=== PATIENT | male | born 1955 | race Caucasian/White ===

== ENCOUNTER 2020-11-08 08:16 | Outpatient (REF) | payer MEDICARE, BC, SELFPAY ==
--- NOTE | ~2020-11-08 | XR_ITS ---
EXAMINATION: XR KNEE, RIGHT XR KNEE AP STANDING CLINICAL INFORMATION: Pain. COMPARISON: None TECHNIQUE: Lateral and axial views of the right knee were obtained. AP bilateral standing view of the knees was obtained. FINDINGS: Right knee bones and soft tissues are normal. No fracture or dislocation is seen. There is a small right knee joint effusion. Alignment is anatomic. Right knee joint spaces are well maintained. No abnormal soft tissue calcification. On the AP view, the lateral an medial joint space compartments of the left knee are well-maintained. XR/XR knee standing BI IMPRESSION: 1. A small right knee joint effusion is seen. 2. No unusual degenerative change is seen of the bilateral knees.
--- NOTE | ~2020-11-08 | XR_ITS ---
EXAMINATION: XR KNEE, RIGHT XR KNEE AP STANDING CLINICAL INFORMATION: Pain. COMPARISON: None TECHNIQUE: Lateral and axial views of the right knee were obtained. AP bilateral standing view of the knees was obtained. FINDINGS: Right knee bones and soft tissues are normal. No fracture or dislocation is seen. There is a small right knee joint effusion. Alignment is anatomic. Right knee joint spaces are well maintained. No abnormal soft tissue calcification. On the AP view, the lateral an medial joint space compartments of the left knee are well-maintained. XR/XR knee RT 2V IMPRESSION: 1. A small right knee joint effusion is seen. 2. No unusual degenerative change is seen of the bilateral knees.
== END 2020-11-08 08:17 | disposition home or self-care (01) ==
LOC: HO.HOSX 08:16
PROVIDERS: Visit Provider Orthopaedic Surgery
DX: M25.561 Pain in right knee (principal)
CPT/HCPCS: 73560; 73565; 99212

== ENCOUNTER 2021-01-15 16:34 | Outpatient (REF) | payer MEDICARE, BC, SELFPAY ==
--- NOTE | ~2021-01-15 | MR_ITS ---
EXAMINATION: MR KNEE WITHOUT CONTRAST, RIGHT CLINICAL INFORMATION: Right knee pain with bending. Clicking. Internal derangement. COMPARISON: Right knee radiographs dated 11/08/2020. TECHNIQUE: MRI of the knee without contrast was performed using routine sequences on a high-field scanner. FINDINGS: MENISCI: Medial Meniscus: Mild intrasubstance degenerative signal within the meniscal body and medial aspect of the posterior horn which may contact the tibial articular surface. Lateral Meniscus: Oblique inner margin tearing of the posterior meniscal body extending into the posterior horn. Complex fraying/tearing of the posterior horn and root. LIGAMENTS: Cruciate: Intact. Collateral: Intact. EXTENSOR MECHANISM: Intact. ARTICULAR CARTILAGE/BONE: Patellofemoral Compartment: Mild patellar median ridge articular cartilage surface irregularity. Central and medial trochlear articular cartilage signal heterogeneity and surface irregularity. Tiny marginal osteophytes. Medial Compartment: Near full-thickness articular cartilage defect at the posterior weightbearing medial femoral condyle measuring 1.3 x 0.8 cm (AP x ML). Lateral Compartment: Weightbearing lateral tibial plateau articular cartilage signal heterogeneity and surface irregularity. Tiny marginal osteophytes. JOINT FLUID AND BURSAE: [id number] joint effusion. Superomedial loose body measuring 0.4 cm (axial image 10/07). MR/MR knee RT wo con IMPRESSION: 1. Oblique inner margin tearing of the lateral meniscus posterior body extending into the posterior horn with complex tearing of the posterior root. 2. Intrasubstance abnormal signal within the meniscal body and posterior horn with possible contact of the tibial articular surface. 3. Mild tricompartmental osteoarthritis. Near full-thickness focal defect at the weightbearing medial femoral condyle measuring 1.3 x 0.8 cm. 4. Small to moderate joint effusion. Superomedial loose body measuring 0.4 cm.
== END 2021-01-15 16:35 | disposition home or self-care (01) ==
LOC: HO.MRI 16:34
PROVIDERS: Visit Provider Orthopaedic Surgery
DX: M23.91 Unspecified internal derangement of right knee (principal)
CPT/HCPCS: 73721

== ENCOUNTER → 2021-02-04 13:44 | Outpatient (BNVA) | payer MEDICARE, BC, SELFPAY | PROVIDERS: Visit Provider Orthopaedic Surgery | DX: S83.281A Other tear of lateral meniscus, current injury, right knee, initial encounter (principal) | CPT/HCPCS: 99212 ==

== ENCOUNTER 2021-02-27 10:23 | Day surgery (SDC) | payer MEDICARE, BC, SELFPAY ==
[2021-02-14 10:58] VITALS: BMI 36.2
--- NOTE | 2021-02-19 10:30 | HO.ANESPROP2 ---
Documented by User: Renetta Cagle NP 02/19/21 10:30 HPI - Anesthesia Eval Consult details Narrative: 66yo M for Right Knee Arthroscopy PMFSH Active Problems Active Problems: All Active Problems (Updated 02/14/21 @ 10:56 by Jada Hernandez RN) Lateral meniscus tear (Acute) Past Medical History Medical History Arthritis COVID-19 vaccine series completed High blood pressure Seasonal allergies Surgical History Surgical History H/O colonoscopy Social History Social History Are you a primary day care center director to a significant other at home: No Do you presently have visiting nurse or other home services: No Patient Tobacco Use Status: Never used Tobacco Use of substances other than those prescribed or required for medical reasons: No Have you been hit, kicked, punched, or otherwise hurt by someone within the past year? If so, by whom?: No Are you DNR?: No Advance Directives: Yes Advance Directives Information Provided: Yes (informational brochure mailed w/pre-op instructions) Advance Directives on File: No Recently lost weight without trying: No Eating poorly because of decreased appetite: No Nutrition Risks: No Nutritional Risk Poor oral hygiene: No Meds Allergies Allergy/AdvReac Type Severity Reaction Status Date / Time Penicillins Allergy Severe Anaphylaxis Verified 02/14/21 10:58 (childhood) Seasonal Allergies Allergy Intermediate hayfever Verified 02/14/21 10:58 symptoms (taking montelukast daily) Home Medications Medication Instructions Recorded Confirmed Last Taken Type hydralazine 50 mg tablet 50 mg PO BID 11/08/20 02/14/21 02/27/21 06:00 History losartan 100 1 tab PO QAM 11/08/20 02/14/21 Unknown History mg-hydrochlorothiazide 25 mg tablet montelukast 10 mg tablet 10 mg PO QAM 11/08/20 02/14/21 Unknown History Exam Exam Date and Time: February 19, 2021 1030 Height,Weight and Vital Signs: Height 6 ft 4 in Weight 135.171 kg Assessment and Plan Assessment Anesthesia Assessment: Chart Reviewed Documented by User: Deepthi Oswald MD 02/27/21 12:59 PMFSH Active Problems Active Problems: All Active Problems (Updated 02/14/21 @ 10:56 by Jada Hernandez RN) Lateral meniscus tear (Acute) Surgery postponed from last week secondary to feeling fluish after getting flu and covid booster vaccines. Tested negative for covid. Feeling much better today Past Medical History Medical History Arthritis COVID-19 vaccine series completed High blood pressure Seasonal allergies Family History Family history of problems with anesthesia: No Surgical History Surgical History H/O colonoscopy History of Problems with Anesthesia: No Social History Social History Are you a primary day care center director to a significant other at home: No Do you presently have visiting nurse or other home services: No Patient Tobacco Use Status: Never used Tobacco Use of substances other than those prescribed or required for medical reasons: No Have you been hit, kicked, punched, or otherwise hurt by someone within the past year? If so, by whom?: No Are you DNR?: No Advance Directives: Yes Advance Directives Information Provided: Yes (informational brochure mailed w/pre-op instructions) Advance Directives on File: No Recently lost weight without trying: No Eating poorly because of decreased appetite: No Nutrition Risks: No Nutritional Risk Poor oral hygiene: No Meds Allergies Allergy/AdvReac Type Severity Reaction Status Date / Time Penicillins Allergy Severe Anaphylaxis Verified 02/14/21 10:58 (childhood) Seasonal Allergies Allergy Intermediate hayfever Verified 02/14/21 10:58 symptoms (taking montelukast daily) Home Medications Medication Instructions Recorded Confirmed Last Taken Type hydralazine 50 mg tablet 50 mg PO BID 11/08/20 02/14/21 02/27/21 06:00 History losartan 100 1 tab PO QAM 06/24/21 09/30/21 Unknown History mg-hydrochlorothiazide 25 mg tablet montelukast 10 mg tablet 10 mg PO QAM 11/08/20 02/14/21 Unknown History Exam Height,Weight and Vital Signs: Height 6 ft 4 in Weight 135.171 kg Vital Signs Temp Pulse Resp BP Pulse Ox 02/27/21 10:58 161/85 H 02/27/21 10:48 97.6 F 79 16 174/107 H 96 Airway Mallampati Class: II TM Dist: >3cm Neck ROM: Full Heart: RRR Lungs: CTAB Assessment and Plan Assessment Anesthesia Assessment: Anesthesia Plan Discussed Final Anesthetic Review Family History of Problems with Anesthesia: No History of Problems with Anesthesia: No NPO: Yes ASA Class: II Final Preanesthetic Review: No Changes in Pt Med Stat, Meds/Allgs Chart Reviewed, Consent Obtained/Reviewed and Anes Risks/Benef Reviewed Patient Risk: Intermediate Procedure Risk: Low Assessment/Block/Sedation in SS: Assess/Block/Sedation-SS Anesthetic Plan Anesthetic Plan: GA Disposition: Standard PACU
[2021-02-27] VITALS (7 sets, daily range): BP systolic 114–174; BP diastolic 54–107; PULSE 65–79; RESP 16; TEMP 36.1–36.4; O2SAT 96–99
[2021-02-27] MEDS: Lactated Ringers 1,000 ML 100 ML IVCONT (11:09)
--- NOTE | 2021-02-27 11:17 | MHC.SHP ---
Pre-Procedural Eval Section A Date of Service: 02/27/21 The patient is an INPATIENT: No Changes since office visit: Yes Patient answered all questions; No Cold of Flu in the past 2 weeks, No New Medical Problems and No Changes in Medication The History & Physical has been completed within 30 days and I have reviewed it.: Yes Section B Chief Complaint: right knee pain Allergies: Allergies Allergy/AdvReac Type Severity Reaction Status Date / Time Penicillins Allergy Severe Anaphylaxis Verified 02/14/21 10:58 (childhood) Seasonal Allergies Allergy Intermediate hayfever Verified 02/14/21 10:58 symptoms (taking montelukast daily) Plan I have reviewed the history and physical and performed a pertinent physical examination on my patient. No changes have occurred unless specified.
[2021-02-27] MEDS: oxyCODONE HCl Immed Release 5 MG TABLET PO (14:45)
[2021-02-27] MEDS: Acetaminophen 325 MG TABLET 650 MG PO (14:45)
--- NOTE | 2021-03-08 14:53 | P.BOP_ITS ---
Brief Operative Note Date of Service: 02/27/21 Pre-op diagnosis: Right knee lateral meniscus tear Post-op diagnosis: other (1) right knee lateral meniscus tear 2) right knee osteoarthritis) Procedure: Partial lateral meniscectomy and chondroplasty Surgeon: Cooper Davies MD Anesthesia: GETA and local Was an Refrigeration Brazer/Solderer used for this Procedure?: No Estimated blood loss (mL): 5 IV fluids (mL): 500 Pathology: none sent Condition: stable Disposition: PACU
--- NOTE | 2021-03-08 14:57 | W.PM.OPN ---
Operative Note Operative Note Date of Service: 02/27/21 Narrative: Pre-op diagnosis: Right knee lateral meniscus tear Post-op diagnosis: other (1) right knee lateral meniscus tear 2) right knee osteoarthritis) Procedure: Partial lateral meniscectomy and chondroplasty Surgeon: Cooper Davies MD Anesthesia: GETA and local Was an Coordinator [employer] used for this Procedure?: No Estimated blood loss (mL): 5 IV fluids (mL): 500 Pathology: none sent Condition: stable Disposition: PACU Procedure in detail: Patient was brought to the operating room placed supine on the arthroscopic table and prepped and draped in standard sterile fashion. A time-out was called to identify proper site proper procedure proper surgeon and IV antibiotics per weight were administered. I began by exsanguinating the limb and insufflating tourniquet to 300 mm Hg. Then made a standard anterolateral stab incision. The knee was insufflated with water and 30 degree arthroscope was placed. There was grade 1 fibrillations of the patella but overall suprapatellar pouch was clean and the gutters were clean. I descended into the medial compartment where I made my medial portal under direct visualization. There was a grade 3 with small areas of g 4 changes in the femroal medial condyle in the wb portion extending anteriorly. This was debrided with a shaver. The meniscus was pristine and the root was intact. From here I examined the notch which was largely intact but there were some changes in the lateral aspect of the ACL and the junction with see lateral meniscus. There was a partially flipped bucket-handle meniscus tear with partial involvement the ACL. Overall the ACL involvement was minimal but this was a large flap of the meniscus that had flipped into the notch. I used a probe to free this up and then debrided it with combination of shaver and cautery until it was down to stable edges. The lateral meniscus was intact and the lateral compartment cartilage was unharmed. I took my final pictures and then removed all instrumentation and closed the portals with skin glue. 25 mL of 2% Marcaine with epinephrine was injected into the joint and the surrounding soft tissues. Patient was then placed in sterile dressing extubated brought recovery room stable condition. There were no known complications.
== END 2021-02-27 16:10 | disposition home or self-care (01) ==
PROVIDERS: PCP Internal Medicine; Visit Provider Orthopaedic Surgery
PROC: (CPT 29870; principal; 2021-02-27 12:30)
DX: S83.281A Other tear of lateral meniscus, current injury, right knee, initial encounter (principal); M25.461 Effusion, right knee; M17.11 Unilateral primary osteoarthritis, right knee; X58.XXXA Exposure to other specified factors, initial encounter; Y93.9 Activity, unspecified; Y92.9 Unspecified place or not applicable; Y99.8 Other external cause status; I10 Essential (primary) hypertension; J30.2 Other seasonal allergic rhinitis; Z79.899 Other long term (current) drug therapy; Z88.0 Allergy status to penicillin
CPT/HCPCS: 29881; J0171; J1100; J2250; J2405; J3010

== ENCOUNTER → 2021-03-11 14:16 | Outpatient (BNVA) | payer MEDICARE, BC, SELFPAY | PROVIDERS: Visit Provider Physician Assistant | DX: S83.289D Other tear of lateral meniscus, current injury, unspecified knee, subsequent encounter (principal) | CPT/HCPCS: 99212 ==

== ENCOUNTER → 2021-05-29 08:55 | Outpatient (BNVA) | payer MEDICARE, BC, SELFPAY | PROVIDERS: PCP Internal Medicine; Visit Provider Internal Medicine Cardiovascular Disease | DX: I10 Essential (primary) hypertension (principal); G47.10 Hypersomnia, unspecified | CPT/HCPCS: 93005; 99202 ==

== ENCOUNTER → 2021-06-04 14:57 | Outpatient (REF) | payer MEDICARE, BC, SELFPAY | LOC: HO.SL 14:57 | PROVIDERS: Visit Provider Internal Medicine Cardiovascular Disease | DX: G47.10 Hypersomnia, unspecified (principal); I10 Essential (primary) hypertension; G47.33 Obstructive sleep apnea (adult) (pediatric) | CPT/HCPCS: 95806 ==

== ENCOUNTER → 2021-06-13 07:45 | Outpatient (REF) | payer MEDICARE, BC, SELFPAY ==
--- NOTE | ~2021-06-13 | US_ITS ---
EXAMINATION: ULTRASOUND RENAL WITH DOPPLER CLINICAL INFORMATION: Essential primary hypertension COMPARISON: None. TECHNIQUE: Real-time grayscale, color Doppler, and duplex Doppler evaluation of the kidneys and renal vasculature was performed. FINDINGS: RENAL MEASUREMENTS: Right: 14.3 x 5.3 x 6.6 cm (Sag x AP x TV) Left: 14.0 x 6.7 x 6.5 cm (Sag x AP x TV) The renal parenchyma appears normal. No hydronephrosis or nephrolithiasis. DOPPLER INTERROGATION: Aorta: 98 cm/sec Right Main Renal Artery: Proximal: 99 cm/sec Mid: 75 cm/sec Distal: 102 cm/sec Upper left Main Renal Artery: Proximal: 89 cm/sec Mid: 125 cm/sec Distal: 144 cm/sec Lower left Main Renal Artery: Proximal: 219 cm/sec Mid: 223 cm/sec Distal: 221 cm/sec Renal-Aortic Ratio (RAR): Right: 1.0 Upper Left: 1.5 Lower Left: 2.2 US/US renal doppler IMPRESSION: -Single main right renal artery demonstrates normal velocities without evidence of hemodynamically significant stenosis. 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 The uppermost left renal artery demonstrates no evidence of hemodynamically significant stenosis, however, velocities are elevated throughout the majority of the left lower renal artery suggesting possible stenosis. CTA abdomen recommended for further evaluation.
--- NOTE | 2021-06-13 07:48 | CA_ITS ---
Transthoracic Echocardiogram Patient (Last, First, Middle): Elvis Cutler, Gender: Male Date of : 1955 Age: 66 Procedure Date: 06/13/2021 Procedure Type: Transthoracic Echocardiogram Location: OP Height: 193.04 cm Weight: 136.08 kg BSA: 2.63 m2 Heart Rate: bpm BP: 140 / 80 mmHg Food Tray Assembler: TSERING Referring MD: Dm Chacon MD District Plant Engineer: Dm Chacon MD Symptoms: I10 - Essential (primary) hypertension Study Quality: Technically Difficult/contrast ECG Rhythm: Sinus Conclusions: - 1. Normal LV systolic function with normal filling pattern 2. Mildly dilated left atrium 3. Trivial aortic regurgitation 4. Normal RV systolic pressure 5. No gross pericardial effusion Findings Procedure Information Contrast agent, definity, is being given per protocol without apparent complications. Left Ventricle Normal left ventricular size and systolic function. There is mildly increased left ventricular wall thickness. The visually estimated ejection fraction is between 60-65%. Spectral Doppler is indicative of a normal filling pattern. Right Ventricle Normal right ventricular cavity size and systolic function. Atria The left atrium is mildly dilated. Interatrial shunt cannot be excluded. The right atrium was not well visualized. Aortic Valve The aortic valve structure and function is likely normal. There is no aortic valve stenosis. There is trace (trivial) aortic valve regurgitation. Mitral Valve Likely normal mitral valve structure and function. There is trace mitral valve regurgitation. There is no mitral valve stenosis. Pulmonic Valve The pulmonic valve was not well visualized. Tricuspid Valve There is trace tricuspid valve regurgitation. The right ventricular systolic pressure is normal. The right ventricular systolic pressure is 16 mmHg. There is no evidence of pulmonary hypertension. Great Vessels All visible segments of the aorta are normal in size. The pulmonary artery was not well visualized. Venous The inferior vena cava is normal in size and collapses greater than 50% with inspiration. Pericardium/Pleural There is no evidence of pericardial effusion. Prior Study Comparison No prior study available for comparison. Measurements 2D Linear Measurements IVSd: 1.22 0.6-0.9/0.6-1.0 cm LVIDd: 3.99 3.9-5.3/4.2-5.9 cm LVIDd Index: 1.52 2.4-3.2/2.2-3.1 cm/m2 LVIDs: 2.62 2.0-3.6 cm LVPWd: 1.18 0.7-1.1 cm Ao Root: 3.90 2.1-3.5 cm LA Diam: 3.90 2.7-3.8/3.0-4.0 cm LAIDs Index: 1.48 1.5-2.3 cm/m2 LV Mass: 205.29 67-162/88-224 g LV Mass Index: 78.06 43-95/49-115 g/m2 LVOT Diam: 2.30 3.0+(-)1.3 cm 2D Systolic Function EF 4C: 64.30 >55% EF 2C: 61.30 >55% EF BiP: 61.30 >55% Mitral Valve MV Pk E: 0.81 MV PK A: 0.58 MV Decel Time: 250.00 E/A: 1.40 E'Lateral: 11.00 E'Medial: 7.07 E/E' Med: 11.50 E/E' Lat: 7.40 PHT: 73.00 MVA PHT: 3.01 Decel Stephenson: 3.24 Aortic Valve AoV Pk Mark: 1.20 AoV Mn Mark: 0.94 AoV VTI: 0.27 AoV Pk Grad: 6.00 Aov Mn Grad: 4.00 ANGELA Cont.VTI: 3.42 LVOT LVOT Pk Mark: 1.10 LVOT Mn Mark: 0.70 LVOT VTI: 0.22 LVOT Pk Grad: 5.00 LVOT Mn Grad: 2.00 LVOT Diam: 2.30 LVOT Area: 4.15 Diastolic Function MV Pk E: 0.81 MV Pk A: 0.58 E/A: 1.40 E'Medial: 7.07 E/E' Med: 11.50 E' Laterial: 11.00 E/E' Lat: 7.40 Right Ventricle TAPSE (mm): 25.40 TVS' Mark: 16.60 Tricuspid Valve TR Pk Mark: 1.79 TR Pk Grad: 13.00 RA Press: 3.00 RVSP: 16.00 Great Vessels Aorta Ao Root-2D: 3.90 2.0-3.7 cm Ao Asc: 3.30 2.1-3.4 cm Ao Arch: 3.20 Updated in Other Vendor System with Status of Final Dm Chacon MD electronically signed on 06/14/2021 4:32:42 PM with status of Final
== END ==
LOC: HO.CARD 07:45
PROVIDERS: Visit Provider Internal Medicine Cardiovascular Disease
DX: I10 Essential (primary) hypertension (principal)
CPT/HCPCS: 93306; 93975; Q9957

== ENCOUNTER → 2021-06-17 09:10 | Outpatient (BNVA) | payer MEDICARE, BC, SELFPAY | PROVIDERS: Visit Provider Nurse Practitioner Family | DX: G47.33 Obstructive sleep apnea (adult) (pediatric) (principal); I10 Essential (primary) hypertension | CPT/HCPCS: 99202 ==

== ENCOUNTER → 2021-07-10 09:11 | Outpatient (BNVA) | payer MEDICARE, BC, SELFPAY | PROVIDERS: Visit Provider Internal Medicine Cardiovascular Disease | DX: I11.9 Hypertensive heart disease without heart failure (principal) | CPT/HCPCS: 99212 ==

== ENCOUNTER → 2022-06-30 09:00 | Outpatient (BNVA) | payer MEDICARE, BC, SELFPAY | PROVIDERS: PCP Internal Medicine; Visit Provider Internal Medicine Cardiovascular Disease | DX: I11.9 Hypertensive heart disease without heart failure (principal) | CPT/HCPCS: 93005; 99212 ==

== ENCOUNTER → 2023-06-11 07:51 | Outpatient (REF) | payer MEDICARE, BC, SELFPAY ==
--- NOTE | 2023-06-11 07:54 | CA_ITS ---
Transthoracic Echocardiogram Patient (Last, First, Middle): Elvis Cutler, Gender: Male Date of : 1955 Age: 68 Procedure Date: 06/11/2023 Procedure Type: Transthoracic Echocardiogram Location: OP Height: 193.04 cm Weight: 136.08 kg BSA: 2.63 m2 Heart Rate: 73 bpm BP: 150 / 85 mmHg Health Information Systems Technician: JOEL Referring MD: Dm Chacon MD Symptoms: I11.9 - Hypertensive heart disease without heart failure Study Quality: Fair/w Contrast ECG Rhythm: Sinus Conclusions: - 1. Normal LV ejection fraction 55-60% with mild LVH 2. Mildly dilated left atrium 3. Normal cardiac valvular Doppler 4. Mildly dilated ascending aorta 3.7 cm 5. No gross pericardial effusion Findings Procedure Information Contrast agent, definity, is being given per protocol without apparent complications. Left Ventricle Normal left ventricular size and systolic function. There is mildly increased left ventricular wall thickness. The visually estimated ejection fraction is between 55-60%. Spectral Doppler is indicative of a normal filling pattern. Right Ventricle Normal right ventricular cavity size and systolic function. Atria The left atrium is mildly dilated. Interatrial shunt cannot be excluded. The right atrium is normal in size. Aortic Valve The aortic valve structure and function is likely normal. There is no aortic valve stenosis. There is no aortic valve regurgitation. Mitral Valve There is mild anterior mitral leaflet thickening. There is trace mitral valve regurgitation. There is no mitral valve stenosis. Pulmonic Valve The pulmonic valve is likely normal. Tricuspid Valve Normal tricuspid valve structure. Tricuspid regurgitation envelope is inadequate for calculation of right ventricular systolic pressure. Normal right atrial pressure. Great Vessels The pulmonary artery was not well visualized. There is mild dilatation of the ascending aorta measuring 3.70 cm. Venous The inferior vena cava is normal in size and collapses greater than 50% with inspiration. Pericardium/Pleural There is no evidence of pericardial effusion. Prior Study Comparison No significant change compared to prior study dated: 06/13/2021. Measurements 2D Linear Measurements IVSd: 1.37 0.6-0.9/0.6-1.0 cm LVIDd: 4.24 3.9-5.3/4.2-5.9 cm LVIDd Index: 1.61 2.4-3.2/2.2-3.1 cm/m2 LVIDs: 2.85 2.0-3.6 cm LVPWd: 1.32 0.7-1.1 cm LA Diam: 4.50 2.7-3.8/3.0-4.0 cm LAIDs Index: 1.71 1.5-2.3 cm/m2 LV Mass: 266.85 67-162/88-224 g LV Mass Index: 101.46 43-95/49-115 g/m2 LVOT Diam: 2.20 3.0+(-)1.3 cm 2D Systolic Function EF 4C: 60.40 >55% EF 2C: 62.70 >55% EF BiP: 58.60 >55% Mitral Valve MV Pk E: 0.82 MV PK A: 0.59 MV Decel Time: 244.00 E/A: 1.40 E'Lateral: 10.10 E'Medial: 6.85 E/E' Med: 12.00 E/E' Lat: 8.10 PHT: 72.00 MVA PHT: 3.06 Decel Randolph: 3.37 Aortic Valve AoV Pk Mark: 1.18 AoV Mn Mark: 0.88 AoV VTI: 0.25 AoV Pk Grad: 6.00 Aov Mn Grad: 3.00 ANGELA Cont.VTI: 3.37 LVOT LVOT Pk Mark: 1.12 LVOT Mn Mark: 0.73 LVOT VTI: 0.22 LVOT Pk Grad: 5.00 LVOT Mn Grad: 3.00 LVOT Diam: 2.20 LVOT Area: 3.80 Diastolic Function MV Pk E: 0.82 MV Pk A: 0.59 E/A: 1.40 E'Medial: 6.85 E/E' Med: 12.00 E' Laterial: 10.10 E/E' Lat: 8.10 Right Ventricle TAPSE (mm): 23.40 TVS' Mark: 16.00 Great Vessels Aorta Sinus of Valsalva: 4.20 2.0-3.5 cm Ao Asc: 3.70 2.1-3.4 cm Pulmonary Valve PV Pk Mark: 0.96 Peak PV Grad: 4.00 Updated in Other Vendor System with Status of Final Dm Chacon MD electronically signed on 06/11/2023 11:22:20 AM with status of Final
== END ==
LOC: HO.CARD 07:51
PROVIDERS: PCP Internal Medicine; Visit Provider Internal Medicine Cardiovascular Disease
DX: I11.9 Hypertensive heart disease without heart failure (principal)
CPT/HCPCS: 93306; Q9957

== ENCOUNTER → 2023-06-11 07:54 | Outpatient (BNV) | payer MEDICARE, BC, SELFPAY | PROVIDERS: PCP Internal Medicine; Visit Provider Internal Medicine Cardiovascular Disease | DX: I11.9 Hypertensive heart disease without heart failure (principal) | CPT/HCPCS: 93306 ==

== ENCOUNTER 2023-07-02 11:34 | Outpatient (AMB) | payer MEDICARE, BC, SELFPAY ==
[2023-07-02 11:39] VITALS: BP 120/70; PULSE 89; BMI 37.6
--- NOTE | 2023-07-02 11:39 | MHC.OFFVIS ---
Intake Vital Signs 07/02/23 11:39 Height 6 ft 4 in Weight 308 lb 10.354 oz BMI 37.6 BP 120/70 Blood Pressure Location Lt brachial Position Sitting Pulse 89 Intake Visit Reasons: 1 yr fu after echo Intake Note: 1 year follow-up with ekg after echo [employer] Required: No Allergies Penicillins Allergy (Severe, Verified 03/11/21 14:36) Anaphylaxis (childhood) Seasonal Allergies Allergy (Intermediate, Verified 03/11/21 14:36) hayfever symptoms (taking montelukast daily) Medication List - Last Reconciled 07/02/23 by Dm Chacon MD amlodipine (Norvasc) 5 mg PO QPM hydralazine 100 mg PO BID losartan-hydrochlorothiazide 100-25 mg 1 tab PO QAM montelukast 10 mg PO QAM HPI HPI Comments History of Present Illness Details Elvis comes for follow-up. He underwent renal replacement surgery last year. Since his and now he has been more active and participating in regular physical activity. He denies any symptoms of shortness of breath or orthopnea or PND or leg edema. Denies any exertional chest pain. Denies any lightheadedness, syncope. Occasionally when he is traveling and/or has other appointments he does not take his losartan hydrochlorothiazide due to diuretic effect of hydrochlorothiazide. Otherwise he says blood pressure is generally well controlled. FOR[facility]LY [facility] Medical History Hypertensive heart disease Uncontrolled hypertension COVID-19 vaccine series completed Seasonal allergies Arthritis High blood pressure Surgical History H/O colonoscopy Family History Father No problems noted. Mother No problems noted. Social History Are you a primary managed care specialist to a significant other at home: No Do you presently have visiting nurse or other home services: No Alcohol intake: current Alcohol intake frequency: a few times a month Patient Tobacco Use Status: Never used Tobacco Review of Systems Const Denies chills, Denies fatigue, Denies fever(s), Denies frequent falls, Denies weakness, Denies weight gain and Denies weight loss ENT Denies dizziness Card Denies chest pain, Denies leg edema, Denies lightheadedness, Denies palpitations, Denies dyspnea, Denies dyspnea on exertion, Denies orthopnea and Denies other (loss of consciousness) Resp Denies cough, Denies dyspnea and Denies dyspnea on exertion GI Denies hematochezia and Denies change in stool character Musc Denies abnormal gait, Denies muscle weakness, Denies numbness, Denies radiating pain into limb and Denies tingling Neuro Denies Abnormal speech present, Denies abnormal gait, Denies dizziness, Denies frequent falls, Denies numbness, Denies tingling and Denies weakness Endo Denies fatigue and Denies palpitations Physical Exam Vital Signs: Last Vital Signs Pulse 89 07/02/23 11:39 BP 120/70 07/02/23 11:39 BMI result Body Mass Index 37.6 Const General: cooperative, healthy appearing, no acute distress, alert, awake and well groomed Nutritional Appearance: obese Orientation/consciousness: patient oriented x3 Limitations: no limitations HEENT Head: Yes atraumatic Neck Neck: Yes trachea midline, Yes supple and Yes no JVD Resp Effort & Inspection: normal respiratory effort Auscultation: clear to auscultation bilaterally Cardio Jugular venous distension: no JVD Palpation: normal PMI Rate: regular rate Rhythm: regular rhythm Heart sounds: S1 normal heart sound present, S2 normal heart sound present, no click, no gallops, no murmurs and no rubs Bruits: no renal bruits GI Auscultation: normal bowel sounds Skin General skin exam: no rashes or lesions noted Neuro General: patient oriented x3 and no focal motor deficits Speech: No Abnormal speech present Extrem General: Yes no clubbing, cyanosis or edema Psych Appearance: grossly normal Office Procedures EKG Details: EKG shows normal sinus rhythm with nonspecific ST changes in the inferior lead most likely repolarization abnormality [id number], Complete Assessment & Plan Assessment & Plan (1) Hypertensive heart disease: Comment: Mild LVH Code(s): I11.9 - Hypertensive heart disease without heart failure Plan: Hypertensive heart disease with mild LVH without evidence of heart failure. Patient is clinically doing well from my perspective. Continue aggressive control blood pressure. Importance of compliance with medication was discussed advised to monitor blood pressure at home maintain a log. Goal blood pressure less than 130/84. Signs and symptoms of heart failure were discussed. I suggested to split his losartan hydrochlorothiazide in to 2 different prescriptions to avoid missing both the medications. Advised to maintain hydrochlorothiazide as much as possible. Will follow up in the clinic in 1 year's time, sooner p.r.n.. Thank you for allowing me to partake in his care Coding Level of Care Code Est Pt Level 3 (79279) Diagnoses Hypertensive heart disease I11.9 CPT Codes EKG - CPT: 10336-[id number], Complete ([id number])
== END 2023-07-02 12:17 | disposition home or self-care (01) ==
PROVIDERS: PCP Internal Medicine; Visit Provider Internal Medicine Cardiovascular Disease
DX: I11.9 Hypertensive heart disease without heart failure (principal)
CPT/HCPCS: 93010; 99213

== ENCOUNTER → 2023-07-02 11:34 | Outpatient (BNVA) | payer MEDICARE, BC, SELFPAY | PROVIDERS: PCP Internal Medicine; Visit Provider Internal Medicine Cardiovascular Disease | DX: I11.9 Hypertensive heart disease without heart failure (principal) | CPT/HCPCS: 93005; 99212 ==

== ENCOUNTER 2024-07-07 11:13 | Outpatient (AMB) | payer MEDICARE, BC, SELFPAY ==
[2024-07-07 11:16] VITALS: BP 142/70; PULSE 75; BMI 38.5
--- NOTE | 2024-07-07 11:16 | A.OFFVIS_ITS ---
Vital Signs 07/07/24 11:16 Height 6 ft 4 in Weight 316 lb 2.286 oz BMI 38.5 BP 142/70 H Blood Pressure Location Lt brachial Position Sitting Pulse 75 Intake Visit Reasons: 1 yr fu Intake Note: 1yr f/u pt feeling good Emergency Services Professional Required: No Accompanied by: Self / Same As Patient Allergies Penicillins Allergy (Severe, Verified 03/11/21 14:36) Anaphylaxis (childhood) Seasonal Allergies Allergy (Intermediate, Verified 03/11/21 14:36) hayfever symptoms (taking montelukast daily) Medication List - Last Reconciled 07/07/24 by Dm Chacon MD amlodipine (Norvasc) 5 mg PO QPM hydralazine 100 mg PO BID 90 days hydrochlorothiazide 25 mg PO DAILY losartan 100 mg PO DAILY montelukast 10 mg PO QAM HPI Comments Details: Elvis comes for follow-up. He has been doing very well from cardiac perspective. Takes all his medications. Does not regularly check his blood pressure at home although he says blood pressure at other provider's office have been within normal limits. He denies any exertional chest pain. Denies any shortness of breath, orthopnea, PND. Denies any prolonged palpitation irregular heartbeat. He says that he plays pickleball regularly and at high level and has no symptoms related to it. He maintains activity of daily living without issues. Denies lightheadedness, syncope. [facility] Medical History Hypertensive heart disease Uncontrolled hypertension COVID-19 vaccine series completed Seasonal allergies Arthritis High blood pressure Surgical History H/O colonoscopy Family History Father No problems noted. Mother No problems noted. Social History Are you a primary body care manager to a significant other at home: No Do you presently have visiting nurse or other home services: No Alcohol intake: current Alcohol intake frequency: a few times a month Patient Tobacco Use Status: Never used Tobacco Review of Systems Const Denies chills, Denies fatigue, Denies fever(s), Denies weight gain and Denies weight loss ENT Denies dizziness Card Denies chest pain, Denies leg edema, Denies lightheadedness, Denies palpit ations, Denies dyspnea on exertion, Denies orthopnea and Denies other Resp Denies cough and Denies dyspnea on exertion GI Denies hematochezia and Denies change in stool character Musc Denies abnormal gait, Denies muscle weakness, Denies numbness, Denies radiating pain into limb and Denies tingling Neuro Denies Abnormal speech present, Denies abnormal gait, Denies dizziness, Denies numbness and Denies tingling Endo Denies fatigue and Denies palpitations Physical Exam Vital Signs: Last Vital Signs Pulse 75 07/07/24 11:16 BP 142/70 H 07/07/24 11:16 BMI result Body Mass Index 38.5 Const General: cooperative, healthy appearing, no acute distress, alert, awake and well groomed Nutritional Appearance: obese Orientation/consciousness: patient oriented x3 Limitations: no limitations HEENT Head: Yes atraumatic Neck Neck: Yes trachea midline, Yes supple and Yes no JVD Resp Effort & Inspection: normal respiratory effort Auscultation: clear to auscultation bilaterally Cardio Jugular venous distension: no JVD Palpation: normal PMI Rate: regular rate Rhythm: regular rhythm Heart sounds: S1 normal heart sound present, S2 normal heart sound present, no click, no gallops, no murmurs and no rubs Bruits: no renal bruits GI Auscultation: normal bowel sounds Skin General skin exam: no rashes or lesions noted Neuro General: patient oriented x3 and no focal motor deficits Speech: No Abnormal speech present Extrem General: Yes no clubbing, cyanosis or edema Psych Appearance: grossly normal Office Procedures EKG Details: EKGs normal sinus rhythm with T-wave changes in the inferior leads most likely suggestive of repolarization abnormality [id number], Complete Assessment & Plan Assessment & Plan (1) Hypertensive heart disease: Comment: Mild LVH Code(s): I11.9 - Hypertensive heart disease without heart failure Category: Medical Plan: Hypertensive heart disease with difficult control blood pressure at last, currently well optimized on current regimen. Importance of good blood pressure control was discussed. Understands agrees. Continue current therapy. Continue low-salt diet. Encouraged to maintain activity level as tolerated. He is currently participate in lifestyle modification in his participate in weight loss program which was encouraged. Continue regular physical activity. Signs and symptoms of heart failure were discussed. He understands them well. Advised to monitor blood pressure intermittently at home and maintain a log. Will. Goal blood pressure less than 130/84. Will follow up in the clinic in 1 year's time after an echocardiogram. Thank you for allowing me to partake in his care Orders: Orders 2 CA echo transthoracic complete 1 Year I11.9 - Hypertensive heart disease without heart failure Coding Level of Care Code Est Pt Level 4 (15286) Complex EM visit Add On G2211 Diagnoses Hypertensive heart disease I11.9 CPT Codes EKG - CPT: 96099-[id number], Complete ([id number])
== END 2024-07-07 11:46 | disposition home or self-care (01) ==
PROVIDERS: PCP Internal Medicine; Visit Provider Internal Medicine Cardiovascular Disease
DX: I11.9 Hypertensive heart disease without heart failure (principal)
CPT/HCPCS: 93010; 99214; G2211

== ENCOUNTER → 2024-07-07 11:13 | Outpatient (BNVA) | payer MEDICARE, BC, SELFPAY | PROVIDERS: PCP Internal Medicine; Visit Provider Internal Medicine Cardiovascular Disease | DX: I11.9 Hypertensive heart disease without heart failure (principal); R94.31 Abnormal electrocardiogram [ECG] [EKG] | CPT/HCPCS: 93005; 99212 ==